=== PATIENT | female | born 1970 | race Caucasian/White ===

== ENCOUNTER 2021-07-05 07:55 | Outpatient (CLI) | payer OTHER, SELFPAY ==
--- NOTE | 2021-07-05 | ECHO_ITS ---
Patient Info Name: Tiffanie Gill Age: 50 years : 1970 Gender: Female Ht: 65 in Wt: 150 lbs BSA: 1.78 m2 HR: 78 bpm BP: 116 / 77 mmHg Heart Rhythm: Sinus Rhythm Technical Quality: Good Exam Date: 07/05/2021 10:35 AM Exam Location: [facility] Pulmonary Patient Status: Outpatient Admit Date: 07/05/2021 Staff Ordering Physician: Paris, Kellen MCNALLY Music Director: Angela Morris RDCS Attending Provider: SeraKellen Exam Type: CA echo doppler color flow Study Info Indications - COPD R06.09 - Other forms of dyspnea Complete two-dimensional, color flow and Doppler transthoracic echocardiogram is performed. Summary 1. Complete two-dimensional, color flow and Doppler transthoracic echocardiogram is performed. 2. Left ventricular chamber dimension is normal. 3. Left ventricular systolic function is normal, estimated at 60-65%. 4. There is no increased left ventricular wall thickness. 5. The left ventricular diastolic function is normal. 6. There is mild aortic valve regurgitation. 7. There is mild tricuspid valve regurgitation. 8. No pulmonary hypertension, estimated pulmonary arterial systolic pressure is 27 mmHg. Left Ventricle Left ventricular chamber dimension is normal. Left ventricular systolic function is normal, estimated at 60-65%. There is no increased left ventricular wall thickness. The left ventricular diastolic function is normal. Right Ventricle Right ventricular chamber dimension is normal. Right ventricular systolic function is normal. Left Atria Left atrial chamber dimension is normal. Right Atria Right atrial chamber dimension is normal. Aortic Valve The aortic valve is trileaflet. There is no aortic valve stenosis. There is mild aortic valve regurgitation. Pulmonic Valve The pulmonic valve is normal. There is trace pulmonic regurgitation. Mitral Valve The mitral valve has normal leaflets. There is trace mitral valve regurgitation. Tricuspid Valve The tricuspid valve leaflets are normal. There is mild tricuspid valve regurgitation. No pulmonary hypertension, estimated pulmonary arterial systolic pressure is 27 mmHg. Pericardium/Pleural The pericardium appears normal. There is no pericardial effusion. Inferior Vena Cava Normal inferior vena cava with >50% collapse upon inspiration consistent with normal right atrial pressure, 5 mmHg. Aorta The aortic root size at the sinus of Valsalva is normal. Left Ventricular Outflow Tract Name Value Normal LVOT 2D LVOT Diameter 2.0 cm LVOT Doppler LVOT Peak Gradient 4 mmHg LVOT Mean Gradient 2 mmHg LVOT VTI 23 cm LVOT VTI/AV VTI Ratio 0.9 LVOT Stroke Volume 70 ml LVOT CO 12.1 l/min LVOT CI 6.8 l/min/m2 Pulmonic Valve Name Value Normal
[2021-07-05 11:57] LABS: NT Pro B Type Natriuretic Pept 238 pg/mL (5-100)
--- NOTE | 2021-07-05 16:59 | WPDSIXMINUTE ---
Six Minute Walk Procedure Procedure Performed Pulmonary Stress Test (6 min walk) Six Minute Walk This is a 6 minute walk test. The test was performed and interpreted in accordance with the 2014 ERS/ATS task force guidelines. Findings: The patient's resting room air oxygen saturation measured by pulse oximetry was 96% and her heart rate was 65 bpm. Patient ambulated for 417 meters and oxygen saturation remained 94 to 96%. Heart rate at the end of the study was 90 bpm. The patient did not qualify for supplemental oxygen at rest or with ambulation. There are no prior studies for comparison.
--- NOTE | 2021-07-05 17:00 | WPDPFTINT ---
PFT Procedure Performed PFT Procedure Performed Spirometry with Pre/Post Bronchodilator Plethysmography (Lung Vol) Diffusing Cap (DLCO) Flow Vol Loop PFT Interpretation This is a pulmonary function test with pre and post-bronchodilator spirometry, plethysmography and diffusing capacity. The test was performed and results interpreted in accordance with the 2019 and 2005 ATS/ERS Task Force guidelines respectively using the Global Lung Function Initiative-2012 reference equations. Patient demonstrated good effort and cooperation. Reproducibility criteria were met. The quality of the pre bronchodilator spirometry maneuver was Grade A and post bronchodilator spirometry maneuver was Grade A. Findings: Spirometry: the contour the inspiratory and expiratory flow tracing are normal. The pre bronchodilator FVC is 3.77 L, 106% predicted. The pre bronchodilator FEV1 is 2.81 L, 99% predicted. The FEV1: FVC ratio 75%. The post bronchodilator FVC is 3.68 L, representing a 2% decrease. The post bronchodilator FEV1 is 2.77 L, representing 1% decrease. Plethysmography: The total lung capacity is 5.11 L, 98% predicted. Functional residual capacity is 3.34 L, 115% predicted. The residual volume is 1.34 L, 72% predicted. Diffusing capacity: The absolute diffusion capacity is 17.5, 76% predicted. The diffusing capacity corrected for alveolar volume is 3.92, 86% predicted. Impression: The spirometry is normal without evidence of an obstructive abnormality. There is no significant improvement after inhaling a single dose of albuterol. The lung volumes are normal. The diffusing capacity is normal. There are no prior studies for comparison
[2021-07-08 10:54] LABS: Alpha-1-Antitrypsin, QN 136 mg/dL (83-199); NIL 0.06 IU/mL; Quantiferon TB Plus, 1T NEGATIVE (NEGATIVE); TB1-NIL <0.00 IU/mL; TB2-NIL <0.00 IU/mL
[2021-07-08 12:19] LABS: Immunoglobulin G, Serum 1016 mg/dL (600-1640); Immunoglobulin G1 658 mg/dL (382-929); Immunoglobulin G2 210 mg/dL (241-700); Immunoglobulin G3 53 mg/dL (22-178); Immunoglobulin G4 20.3 mg/dL (4.0-86.0)
== END 2021-07-05 07:56 | disposition home or self-care (01) ==
PROVIDERS: PCP Internal Medicine Infectious Disease; Visit Provider Nurse Practitioner
DX: J44.9 Chronic obstructive pulmonary disease, unspecified (principal); R05 Cough; I35.1 Nonrheumatic aortic (valve) insufficiency; I36.1 Nonrheumatic tricuspid (valve) insufficiency
CPT/HCPCS: 36415; 82103; 82104; 82784; 82785; 82787; 83880; 86003; 86480; 93306; 94060; 94618; 94726; 94729

== ENCOUNTER 2021-11-22 12:02 | Outpatient (CLI) | payer OTHER, SELFPAY ==
--- NOTE | 2021-11-23 06:46 | P.METCHAL_ITS ---
Methacholine Procedure Perform Procedure Performed Methacholine Challenge Methacholine Challenge This is a methacholine challenge test. The test was performed and interpreted in accordance with the 2017 ERS technical standard, endorsed by the ATS, using the GLI 2012 reference equations. Testing was performed with increasing doses of nebulized methacholine following a quadrupling dosage protocol. The methacholine dose was delivered via the [employer] Smart[employer] RF[employer] Micromist nebulizer using a 1-minutes tidal breathing protocol. The best post-methacholine FEV1 values were used to determine the change from the post diluent FEV1. The delivered dose of methacholine was used to calculate the provocative dose causing a 20% fall in FEV1 (PD 20). Findings: Baseline FEV1 2.93 L, 103% predicted. Post diluent FEV1 2.83 L Post 1.81 mcg methacholine FEV1 2.45 L, decreased 14% Post 7.26 mcg methacholine FEV1 2.02 L, decreased 29% Post albuterol nebulization FEV1 2.88 L Impression: The PD20 is 3.26 mcg which is categorized as marked airway hyperresponsiveness. There are no prior methacholine challenge studies for comparison
== END 2021-11-22 12:03 | disposition home or self-care (01) ==
PROVIDERS: PCP Internal Medicine Infectious Disease; Visit Provider Nurse Practitioner
DX: J44.9 Chronic obstructive pulmonary disease, unspecified (principal)
CPT/HCPCS: 94070; J7674

== ENCOUNTER 2021-11-22 12:10 | Outpatient (CLI) | payer OTHER, SELFPAY ==
[2021-11-22 13:10] LABS: Basophils Percent Auto 0.4 % (0.2-1.2); Eosinophils Absolute Auto 0.1 K/mm3 (0-0.3); Eosinophils Percent Auto 1.5 % (0-4.4); Hematocrit 46.4 % (37.0-47.0); Hemoglobin 15.5 g/dL (12.0-15.0); Immature Granulocyte Absolute 0.03 K/mm3 (0.00-0.031); Immature Granulocyte Percent A 0.3 % (0-0.5); Lymphocytes Absolute Auto 2.44 K/mm3 (0.9-3.2); Lymphocytes Percent Auto 25.7 % (18.3-44.2); Mean Corpuscular HGB Conc 33.4 g/dl (32-36); Mean Corpuscular Hemoglobin 33.4 pg (26-34); Mean Platelet Volume 10.6 fl (7.4-10.4); Monocytes Absolute Auto 0.5 K/mm3 (0.1-0.6); Monocytes Percent Auto 5.3 % (2.6-8.5); Neutrophils Absolute Auto 6.4 K/mm3 (1.3-6.7); Neutrophils Percent Auto 66.8 % (45.5-73.1); Platelet Count Result 209 k/mm3 (150-375); Red Blood Count 4.64 M/mm3 (4.2-5.4); Red Cell Distribution Width 12.8 % (11.5-14.5); White Blood Count 9.5 K/mm3 (4.5-10.0)
[2021-11-22 13:21] LABS: Alanine Aminotransferase 21 U/L (4-35); Albumin Level 4.2 g/dL (3.5-5.1); Alkaline Phosphatase 87 U/L (38-126); Anion Gap 2 mmol/L (8-16); Aspartate Amino Transferase 26 U/L (14-36); Bilirubin,Total 0.4 mg/dL (0.2-1.3); Blood Urea Nitrogen 14 mg/dL (7-17); Calcium 9.3 mg/dL (8.4-10.2); Carbon Dioxide 31 mmol/L (22-30); Chloride 103 mmol/L (98-107); Estimated Glomerular Filt Rate > 60; Glucose 142 mg/dL (65-110); Potassium 3.6 mmol/L (3.4-5.0); Sodium 136 mmol/L (137-145)
[2021-11-24 22:03] LABS: Erythropoietin (EPO) 6.6 mIU/mL (2.6-18.5)
== END 2021-11-22 12:11 | disposition home or self-care (01) ==
LOC: ANHLAB 12:12
PROVIDERS: PCP Internal Medicine Infectious Disease; Visit Provider Internal Medicine Hematology & Oncology
DX: D75.1 Secondary polycythemia (principal)
CPT/HCPCS: 36415; 80053; 82668; 85025

== ENCOUNTER 2022-05-23 11:17 | Outpatient (CLI) | payer OTHER, SELFPAY ==
[2022-05-23 12:08] LABS: Hemoglobin 15.5 g/dL (12.0-15.0); Mean Platelet Volume 10.9 fl (7.4-10.4); Platelet Count Result 208 k/mm3 (150-375); Red Cell Distribution Width 13.3 % (11.5-14.5); White Blood Count 8.4 K/mm3 (4.5-10.0)
== END 2022-05-23 11:18 | disposition home or self-care (01) ==
PROVIDERS: PCP Internal Medicine Infectious Disease; Visit Provider Internal Medicine Hematology & Oncology
DX: D75.1 Secondary polycythemia (principal)
CPT/HCPCS: 36415; 85027

== ENCOUNTER 2022-11-29 09:45 | Outpatient (CLI) | payer OTHER, SELFPAY ==
[2022-11-29 09:54] LABS: Hematocrit 45.8 % (37.0-47.0); Hemoglobin 15.4 g/dL (12.0-15.0); Mean Corpuscular HGB Conc 33.6 g/dl (32-36); Mean Corpuscular Volume 98.1 fl (80-100); Mean Platelet Volume 10.3 fl (7.4-10.4); Platelet Count Result 201 k/mm3 (150-375); Red Blood Count 4.67 M/mm3 (4.2-5.4); Red Cell Distribution Width 12.9 % (11.5-14.5); White Blood Count 7.8 K/mm3 (4.5-10.0)
== END 2022-11-29 09:46 | disposition home or self-care (01) ==
LOC: ANHLAB 09:47
PROVIDERS: PCP Internal Medicine Infectious Disease; Visit Provider Internal Medicine Hematology & Oncology
DX: D75.1 Secondary polycythemia (principal)
CPT/HCPCS: 36415; 85027

== ENCOUNTER 2023-08-29 12:38 | Outpatient (CLI) | payer OTHER, SELFPAY ==
[2023-08-29 12:50] LABS: Hematocrit 44.2 % (37.0-47.0); Mean Corpuscular HGB Conc 33.9 g/dl (32-36); Mean Corpuscular Hemoglobin 33.2 pg (26-34); Mean Corpuscular Volume 97.8 fl (80-100); Mean Platelet Volume 9.7 fl (7.4-10.4); Platelet Count Result 179 k/mm3 (150-375); Red Blood Count 4.52 M/mm3 (4.2-5.4); Red Cell Distribution Width 12.8 % (11.5-14.5); White Blood Count 7.9 K/mm3 (4.5-10.0)
[2023-08-29 12:55] LABS: Blood Urea Nitrogen 14 mg/dL (8-26); Carbon Dioxide 30 mmol/L (22-30); Chloride 100 mmol/L (98-109); Estimated Glomerular Filt Rate > 60; Glucose 89 mg/dL (70-105); Ionized Calcium (POC) 1.19 mmol/L (1.11-1.31); Potassium 3.8 mmol/L (3.5-4.9); Sodium 142 mmol/L (138-146)
== END 2023-08-29 12:39 | disposition home or self-care (01) ==
LOC: ANHLAB 12:40
PROVIDERS: PCP Internal Medicine Infectious Disease; Visit Provider Internal Medicine Hematology & Oncology
DX: D75.1 Secondary polycythemia (principal)
CPT/HCPCS: 36415; 80047; 85027

== ENCOUNTER 2024-05-03 09:35 | Outpatient (CLI) | payer OTHER, SELFPAY ==
--- NOTE | ~2024-05-03 | MR_ITS ---
MRI of the brain Clinical History: Ataxia Technique: Axial and sagittal T1-weighted images were acquired. These were followed by axial T2-weigh tiff, diffusion weighted, gradient, and FLAIR images. Findings: No abnormal signal seen in the brain parenchyma. No acute infarct, intracranial hemorrhage, or mass lesion. Ventricles and subarachnoid spaces are unremarkable. Orbits are unremarkable. Paranasal sinuses and m astoid air cells are clear. Major intracranial flow voids are intact. Sagittal midline structures are intact. IMPRESSION: Normal exam. Reviewed, dictated and finalized at location M. IMPRESSION: Normal exam.
== END 2024-05-03 09:36 | disposition home or self-care (01) ==
LOC: ANHIMG 09:37
PROVIDERS: PCP Internal Medicine Infectious Disease; Visit Provider Student in an Organized Health Care Education/Training Program
DX: R26.0 Ataxic gait (principal); G25.2 Other specified forms of tremor
CPT/HCPCS: 70551

== ENCOUNTER 2024-05-28 11:09 | Outpatient (CLI) | payer OTHER, SELFPAY ==
[2024-05-28 11:34] LABS: Hematocrit 44.3 % (37.0-47.0); Hemoglobin 15.1 g/dL (12.0-15.0); Mean Corpuscular HGB Conc 34.1 g/dl (32-36); Mean Corpuscular Hemoglobin 33.1 pg (26-34); Mean Corpuscular Volume 97.1 fl (80-100); Mean Platelet Volume 9.9 fl (7.4-10.4); Platelet Count Result 192 k/mm3 (150-375); Red Blood Count 4.56 M/mm3 (4.2-5.4); Red Cell Distribution Width 13.2 % (11.5-14.5); White Blood Count 7.8 K/mm3 (4.5-10.0)
[2024-05-28 11:41] LABS: Blood Urea Nitrogen 14 mg/dL (8-26); Carbon Dioxide 30 mmol/L (22-30); Chloride 98 mmol/L (98-109); Estimated Glomerular Filt Rate > 60; Glucose 72 mg/dL (70-105); Ionized Calcium (POC) 1.23 mmol/L (1.11-1.31); Potassium 3.6 mmol/L (3.5-4.9); Sodium 140 mmol/L (138-146)
[2024-05-28 13:08] LABS: Free T4 Free Thyroxine 1.18 ng/mL (0.78-2.19)
[2024-05-28 13:23] LABS: Thyroid Stimulating Hormone 0.897 uIU/mL (0.465-4.680)
[2024-05-29 12:08] LABS: Triiodothyronine T3 Free 3.3 pg/mL (2.3-4.2)
[2024-05-29 18:12] LABS: Red Blood Cell Folate 462 ng/mL RBC (>280)
[2024-06-01 02:33] LABS: Methylmalonic Acid 162 nmol/L (55-335)
[2024-06-02 19:13] LABS: Vitamin D 1,25 (OH)2 Total 40 pg/mL (18-72); Vitamin D2 1,25 (OH)2 <8 pg/mL; Vitamin D3 1,25 (OH)2 40 pg/mL
== END 2024-05-28 11:10 | disposition home or self-care (01) ==
LOC: ANHLAB 11:11
PROVIDERS: Nurse Practitioner Family; Psychiatry & Neurology Neurology; PCP Internal Medicine Infectious Disease; Visit Provider Internal Medicine Hematology & Oncology
DX: D75.1 Secondary polycythemia (principal); G25.0 Essential tremor; G47.50 Parasomnia, unspecified
CPT/HCPCS: 36415; 80047; 82607; 82652; 82747; 83921; 84439; 84443; 84481; 85027

== ENCOUNTER 2024-06-05 09:31 | Outpatient (CLI) | payer OTHER, SELFPAY ==
--- NOTE | 2024-06-05 11:20 | NEURO_ITS ---
Impression: # Complains of left upper extremity pain. Non-diabetic. # Normal Nerve Conduction Study; No Carpal Tunnel Syndrome or ulnar neuropathy. # Normal needle/EMG exam. # Clinical correlation recommended. Nerve Conduction Studies Anti Sensory Summary Table Stim Site NR Peak (ms) P-T Amp (?V) Site1 Site2 Delta-P (ms) Dist (cm) Addison (m/s) Left Median Anti Sensory (2-3nd Digit) Wrist 2.8 33.3 Wrist 2-3nd Digit 2.8 14.0 50 Wrist 2.8 42.5 Wrist 2-3nd Digit 2.8 14.0 50 Left Radial Anti Sensory (Base 1st Digit) Wrist 1.9 34.1 Wrist Base 1st Digit 1.9 0.0 Left Ulnar Anti Sensory (5th Digit) Wrist 2.5 55.7 Wrist 5th Digit 2.5 14.0 56 Motor Summary Table Stim Site NR Onset (ms) O-P Amp (mV) Site1 Site2 Delta-0 (ms) Dist (cm) Addison (m/s) Left Median Motor (Abd Poll Brev) Wrist 3.4 5.5 Elbow Wrist 5.2 29.0 56 Elbow 8.6 3.9 Left Ulnar Motor (Abd Dig Minimi) Wrist 2.5 5.4 A Elbow Wrist 5.5 32.0 58 A Elbow 8.0 4.9 F Wave Studies NR F-Lat (ms) L-R F-Lat (ms) Left Median (Mrkrs) Run #2 (Abd Poll Brev) 23.51 Left Ulnar (Mrkrs) (Abd Dig Min) 23.61 EMG Side Muscle Nerve Root Ins Act Fibs Amp Dur Recrt Comment Left 1stDorInt Ulnar C8-T1 Nml Nml Nml Nml Nml Left Ext Indicis Radial (Post Int) C7-8 Nml Nml Nml Nml Nml Left Ext Digitorum Radial (Post Int) C7-8 Nml Nml Nml Nml Nml Left BrachioRad Radial C5-6 Nml Nml Nml Nml Nml Left PronatorTeres Median C6-7 Nml Nml Nml Nml Nml Left Abd Poll Brev Median C8-T1 Nml Nml Nml Nml Nml Left ABD Dig Min Ulnar C8-T1 Nml Nml Nml Nml Nml Left Biceps Musculocut C5-6 Nml Nml Nml Nml Nml Left Triceps Radial C6-7-8 Nml Nml Nml Nml Nml Left Deltoid Axillary C5-6 Nml Nml Nml Nml Nml MTDD
== END 2024-06-05 09:32 | disposition home or self-care (01) ==
LOC: ANHNEURO 09:31
PROVIDERS: PCP Internal Medicine Infectious Disease; Visit Provider Internal Medicine Infectious Disease
DX: G45.2 Multiple and bilateral precerebral artery syndromes (principal)
CPT/HCPCS: 95886; 95909

== ENCOUNTER 2025-05-28 11:13 | Outpatient (CLI) | payer OTHER, SELFPAY ==
--- OUTSIDE RECORDS SUMMARY | 2025-05-28 11:23 | XMS_ITS | Clinical Summary ---
Author Organization [facility] Address [address] [place] [address] Care Team Providers Care Building Equipment Inspector Name Role Phone None, Physician Primary Care Provider Unavailabl e Source Comments [facility],non-owned Affiliates and Associated Physician Practices is amultiple site organization consisting of ambulatory clinics and hospital sitesin [place], [place], [place] and [place]. This disclosure is being madepursuant to the Care Everywhere program and may not contain all information available regarding this patient. Last updated 18.[facility] Allergies No known active allergies Social History Tobacco Use Types Packs/Day Years Used Date Smoking Tobacco: Every Day Cigarettes 1 30 Smokeless Tobacco: Never PHQ-2 Answer Date Recorded Patient Health Questionnaire-2 Score 2 09/27/2023 Comments Unknown Sex and Gender Information Value Date Recorded Sex Assigned at Not on file Legal Sex Female 6:27 AM SCREEN PRINTER Gender Identity Not on file Sexual Orientation Not on file Last Filed Vital Signs Vital Sign Reading Time Taken Comments Blood Pressure - - Pulse - - Temperature - - Respiratory Rate - - Oxygen Saturation - - Inhaled Oxygen Concentration - - Weight - - Height 167.6 cm (5' 6) 09/27/2023 10:15 AM SCREEN PRINTER Body Mass Index - - Plan of Treatment Health Maintenance Due Date Last Done Comments COLOGUARD (AGES 45-75) - COLON CA SCREENING 1970 COLON MONITORING 1970 COLONOSCOPY - COLON CA SCREENING 1969 CT COLONOGRAPHY - COLON CA SCREENING 1970 Colorectal Cancer Screening 1970 FIT - COLON CA SCREENING 1969 FLEX SIG - COLON CA SCREENING 1970 MAMMOGRAM 1970 HIV SCREENING 1984 HEPATITIS C SCREENING 12/15/1987 DTAP/TDAP/TD VACCINES (1 - Tdap) 1988 HEPATITIS B VACCINE (1 of 3 - 19+ 3-dose series) 1988 PNEUMOCOCCAL VACCINE 50+ (1 of 2 - PCV) 1988 PAP SMEAR 1990 LUNG CANCER SCREENING 12/20/2019 ZOSTER VACCINE (1 of 2) 12/20/2019 COVID-19 VACCINE (3 - season) 2024 01/18/2021, 12/28/2020 DEPRESSION SCREENING 10/16/2024 09/27/2023 INFLUENZA VACCINE (#1) 2025 2, 06/30/2021, 06/11/2020, Additional history exists LIPID TESTING 11/21/2027 11/21/2022 HIB VACCINE Aged Out No longer eligi ble based on patient's age to complete this topic HPV VACCINE Aged Out No longer eligi ble based on patient's age to complete this topic MENINGOCOCCAL (Group B) VACCINE SHARED DECISION-MAKING Aged Out No longer eligible based on patient's age to complete this topic MENINGOCOCCAL GROUPS A/C/Y/W VACCINE Aged Out No longer eligible based on patient's age to complete this topic Insurance Care Teams Building Equipment Inspector Relationship Specialty Start Date End Date None, Physician [address] [place] [address] PCP - General 09/27/23
--- OUTSIDE RECORDS SUMMARY | 2025-05-28 11:23 | XMS_ITS | Clinical Summary ---
Author Organization [facility] [address] Address [address] [place] [address] Care Team Providers Care Analytical Data Miner Name Role Phone Lillian Garnett MD Primary Care Provider Allergies No known active allergies Medications propranoloL (INDERAL) 10 mg tablet Take 1 tablet (10 mg total) by mouth 3 (three) times a day 1 Active aspirin 81 mg enteric coated tablet Take 1 tablet (81 mg total) by mouth daily Active citalopram (CeleXA) 20 mg tablet Take 1 tablet (20 mg total) by mouth daily 4 Active primidone (MYSOLINE) 50 mg tablet Take 1 tablet (50 mg total) by mouth daily 4 Active tiotropium (Spiriva with HandiHaler) 18 mcg per inhalation capsule TAKE 1 PUFF (ONE CAPSULE TOTAL) INHALED BY MOUTH ONCE DAILY 30 capsule 11 5 Active buPROPion SR (WELLBUTRIN SR) 150 mg 12 hr tablet TAKE 1 TABLET (150 MG TOTAL) BY MOUTH TWO TIMES A DAY 60 tablet 11 5 Active nicotine (NICODERM CQ) 14 mgIndications:Cig arette nicotine dependence without complication Place 1 patch on the skin daily for 24 hours 30 patch 2 5 Active Symbicort 160-4.5 mcg/actuation inhalerIndication s:Asthma-COPD overlap syndrome (HCC) Inhale 2 puffs 2 (two) times a day Rinse mouth with water after use. Do not swallow. 1 each 11 5 Active montelukast (SINGULAIR) 10 mg tablet TAKE 1 TABLET (10 MG TOTAL) BY MOUTH NIGHTLY 30 tablet 11 5 Active albuterol HFA (PROVENTIL HFA,VENTOLIN HFA,PROAIR HFA) 90 mcg/actuation inhaler INHALE TWO PUFFS BY MOUTH EVERY SIX HOURS NEEDED FOR WHEEZING 6.7 g 11 5 Active Active Problems Problem Noted Date Diagnosed Date Asthma-COPD overlap syndrome 07/24/2024 Assessment & Plan (01/22/2025 11:00 AM CDT): Continue Symbicort 160-4.5 twice daily Continue Spiriva HandiHaler 18 mcg daily Albuterol 2 puffs every 4 hours as needed only, we have discussed indications for use Continue montelukast 10 mg daily in the evening A1AT normal I will check a CBC today to assess her eosinophil count We have discussed signs and symptoms that would require earlier evaluation or change to her plan of care Assessment & Plan (07/24/2024 11:05 AM CDT): Continue Symbicort 160-4.5 twice daily Continue Spiriva HandiHaler 18 mcg daily Albuterol as needed only, we have discussed indications for use A1AT normal Cigarette nicotine dependence without complicati on 07/24/2024 Assessment & Plan (01/22/2025 11:01 AM CDT): Continue Zyban 150 twice daily - Smoking cessation counseling and techniques reviewed at length - Avoid triggers and use distraction techniques - Participate in support groups - Information given regarding [place] Tobacco Quit line: 4-141-MJFC-YES for free services - 5 minutes spent discussing cessation I have sent for nicotine patches as a supplement As far as I can see she is overdue for annual low-dose cancer screening I have order testing today. If we find that she has had a CT scan of her chest completed in the interval I will request images and make further recommendations on follow-up at that time Assessment & Plan (07/24/2024 11:06 AM CDT): Previous prescription for Zyban - Smoking cessation counseling and techniques reviewed at length - Avoid triggers and use distraction techniques - Participate in support groups - Information given regarding [place] Tobacco Quit line: 1-282-IDPH-YES for free services - 5 minutes spent discussing cessation Laryngopharyngeal reflux (LPR) 01/23/2022 Assessment & Plan (01/22/2025 11:00 AM CDT): Avoid trigger foods Avoid eating 2-3 hours before bed sign avoid tight clothing Elevate head of bed while sleeping She is not currently on medication and symptoms are infrequent If diet modification does not sustain control I would consider adding famotidine We have discussed the correlation between uncontrolled GERD and chronic cough, dyspnea, and wheezing Assessment & Plan (07/24/2024 11:04 AM CDT): Avoid trigger foods Avoid eating 2-3 hours before bed sign avoid tight clothing Elevate head of bed while sleeping 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 Erythrocytosis 10/20/2021 Palpitations 08/30/2021 Tobacco abuse 07/12/2021 [place] (dyspnea on exertion) 07/12/2021 Chest tightness 07/12/2021 Immunizations Immunization Administration Dates Next Due Influenza, Quadrivalent, Split, Intramuscular Influenza, Quadrivalent, Spl it, Preservative Free, Intramuscular 06/11/2020,06/26/2018 Influenza, Trivalent, IM (MDV) 08/05/2013 Tdap 06/26/2018 Surgical History Surgery Date Site/Laterality Comments PARTIAL HYMENECTOMY CHOLECYSTECTOMY HYSTERECTOMY Medical History Medical History Date Comments Ataxia COPD (chronic obstructive pulmonary disease) H[place]BROOK (dyspnea on exertion) GERD (gastroesophageal reflux disease) Recurrent sinus infections Asthma Anxiety Arthritis Sleep apnea Asthma-COPD overlap syndrome (HCC) 07/24/2024 Cigarette nicotine dependence without complicati on 07/24/2024 Family History Medical History Relation Name Comments Clotting disorder Maternal Grandfather catracho Heart attack Maternal Grandfather catracho Arthritis Mother sharon Cancer Mother sharon Diabetes Mother sharon Hypertension Mother sharon Relation Name Status Comments Father unknown (Age 50's) Maternal Grandfather catracho Mother sharon (Age 53) Social History Tobacco Use Types Packs/Day Years Used Date Smoking Tobacco: Light Smoker Cigarettes 0.3 32.1 Started: 04/16/2023 Smokeless Tobacco: Never Comments:07/24/24 Pt states s he don't keep track of how much she smokes Comments Unknown Sex and Gender Information Value Date Recorded Sex Assigned at Not on file Legal Sex Female 5:29 PM CASE ASSISTANT Gender Identity Not on file Sexual Orientation Not on file Obstetrics History Last Filed Vital Signs Vital Sign Reading Time Taken Comments Blood Pressure 130/70 01/22/2025 9:59 AM CDT Pulse 68 01/22/2025 9:59 AM CDT Temperature 36.2 C (97.1 F) 01/22/2025 9:59 AM CDT Respiratory Rate 16 01/22/2025 9:59 AM CDT Oxygen Saturation 97% 01/22/2025 9:59 AM CDT Inhaled Oxygen Concentration - - Weight 75.7 kg (166 lb 14.4 oz) 01/22/2025 9:59 AM CDT Height 167.6 cm (5' 6) 01/22/2025 9:59 AM CDT Body Mass Index 26.94 01/22/2025 9:59 AM CDT Plan of Treatment Health Maintenance Due Date Last Done Comments Breast Cancer Screening-Mammogram 1970 Colon Cancer Screening-Colonoscopy 1969 Depression Screening 1969 Hepatitis C Screening 1969 Hepatitis B Screening 12/20/1987 Regular Well Visit/Exam 18-64 12/20/1987 Pneumococcal vaccine <65 (1 of 2 - PCV) 1988 Zoster Vaccine (1 of 2) 12/20/2019 Covid-19 Vaccine (3 - 2023-2 5 season) 2024 01/18/2021, 12/28/2020 Influenza Vaccine (#1) 2025 , 07/26/2022, 06/30/2021, Additional history exists DTaP/Tdap/Td Vaccine (2 - Td or Tdap) 06/26/2028 06/26/2018 Insurance [facility] Member Subscriber Plan / Payer ( fective 2020-Present) Name:Tiffanie Gill Relation to Subscriber:Self Name:Tiffanie Gill Payer ID:[id number] (NAIC) Group ID:Not on file Type:MEDICAID RISK OTHER Address: ATTN: CLAIMS DEPT [address] [facility] [place] [id number] Care Teams Analytical Data Miner Relationship Specialty Start Date End Date Lillian Garnett MD [address] [place] [address] PCP - General Internal Medicine 11/21/22
--- OUTSIDE RECORDS SUMMARY | 2025-05-28 11:23 | XMS_ITS | Clinical Summary ---
Author Organization [facility] Address [address] [place] [address] Care Team Providers Care Slat Twister Name Role Phone Lillian Garnett MD Primary Care Provider [phone] Allergies No known active allergies Medications propranoloL (INDERAL) 10 mg tablet Take 10 mg by mouth. 06/01/2021 Active albuterol sulfate 90 mcg/Actuation inhaler INHALE 1 PUFF BY MOUTH EVERY 4 HOURS 05/17/2021 Active Spiriva with HandiHaler 18 mcg capsule 05/25/2022 Active montelukast (SINGULAIR) 10 mg tablet 05/24/2022 Active Symbicort 160-4.5 mcg/actuation HFA Aerosol Inhaler INHALE 2 PUFFS BY MOUTH TWICE DAILY DIRECTED 02/25/2022 Active aspirin (ECOTRIN EC) 81 mg Tablet, Delayed Release (E.C.) Take 81 mg by mouth daily. Active citalopram (CeleXA) 20 mg tablet Take 20 mg by mouth daily at bedtime. Active primidone (MYSOLINE) 50 mg tablet Take 50 mg by mouth daily at bedtime. Active Active Problems Problem Noted Date Diagnosed Date Erythrocytosis 10/20/2021 Encounters Date Type Department Care Team Description 05/20/2025 External Device Data [facility] ABSTRACTION Provider, Abstract 04/30/2025 External Device Data [facility] ABSTRACTION Provider, Abstract 04/29/2025 External Device Data [facility] ABSTRACTION Provider, Abstract 04/01/2025 External Device Data [facility] ABSTRACTION Provider, Abstract 03/06/2025 External Device Data [facility] ABSTRACTION Provider, Abstract 03/05/2025 External Device Data [facility] ABSTRACTION Provider, Abstract 03/04/2025 External Device Data [facility] ABSTRACTION Provider, Abstract from Last 3 Months Family History Medical History Relation Name Comments Cancer Mother Relation Name Status Comments Brother Alive Daughter Alive Father Mother Sister Alive Son 1 Alive Son 2 Alive Social History Tobacco Use Types Packs/Day Years Used Date Smoking Tobacco: Light Smoker Cigarettes 0.3 25 Smokeless Tobacco: Never Tobacco Cessation:Ready to Q uit: Not Asked; Counseling Given: Not Answered Alcohol Use Standard Drinks/Week Comments Never 0 (1 standard drink = 0.6 oz pur e alcohol) Comments Unknown Sex and Gender Information Value Date Recorded Sex Assigned at Not on file Legal Sex Female 9:41 AM GRANT MANAGER Gender Identity Not on file Sexual Orientation Not on file Last Filed Vital Signs Vital Sign Reading Time Taken Comments Blood Pressure 120/80 05/28/2024 11:40 AM CDT Pulse 60 05/28/2024 11:40 AM CDT Temperature 36.7 C (98 F) 05/28/2024 11:40 AM CDT Respiratory Rate 18 05/28/2024 11:40 AM CDT Oxygen Saturation 97% 05/28/2024 11:40 AM CDT Inhaled Oxygen Concentration - - Weight 66.7 kg (147 lb) 05/28/2024 11:40 AM CDT Height 167.6 cm (5' 6) 05/25/2022 9:56 AM CDT Body Mass Index 23.73 05/25/2022 9:56 AM CDT Plan of Treatment Upcoming Encounters Date Type Department Care Team (Late st Contact Info) Description 05/28/2025 11:30 AM CDT Office Visit [facility] Oncology and Hematology - Dimitrios [address] [facility] [address] [place] [address] Jerrod Hernandez MD [address] [place] [address] Health Maintenance Due Date Last Done Comments HEPATITIS B VACCINES (1 of 3 - 19+ 3-dose series) 1988 Preventative Visit-Managed Medicaid 1988 HPV/Cotest (21-29) 1990 CERVICAL CANCER SCREENING 12/20/1999 HPV/Cotest (30-65) 12/20/1999 PAP SMEAR 12/20/1999 BREAST CANCER SCREENING 2009 COLORECTAL SCREENING 2014 Colorectal Cancer Screening 2014 FIT-DNA Q 3 years 2014 FIT/FOBT Q 1 year 2014 Flex Sig/CT Colonography Q 5 years 2014 ZOSTER VACCINE (1 of 2) 12/20/2019 INFLUENZA VACCINE (#1) 2025 0, 06/07/2019, 06/26/2018, Additional history exists DTAP/TDAP/TD VACCINES (2 - T d or Tdap) 06/26/2028 06/26/[address] [place] [address] [place] [address] MEDICAID Care Teams Slat Twister Relationship Specialty Start Date End Date Lillian Garnett MD [address] [place] [address] PCP - General Internal Medicine 10/20/21
--- OUTSIDE RECORDS SUMMARY | 2025-05-28 11:23 | XMS_ITS | Continuity of Care Document ---
Author Organization Formerly [facility] Address [address] [place] [address] Phone Care Team Providers Care Academic Success Coordinator Name Role Phone Maurice OD, Kofi Unavailable Unavailable Advance Directives Directive Yes / No Effective Date File Name No Information Encounters Encounter Description Practice Location Reason(s) For Visit Diagnoses Date Provider Providers Copied on Encounter [facility], [address], [place], [place], [id number], [place] tel:[phone] [facility] [place] No Information [id number] 1 Maurice OD Kofi. [address] [place] , [address], [place], [address], [place]. tel:[phone] Family History Family Member Type Diagnosis Age At Onset No Information Payers Payer name Insurance type Covered constitution party ID Authoriza tion(s) Medicaid [facility] [id number] Social History Type Description Quantity Date Captured Comments Sex Female Smoking Status No Information Chief Complaint And Reason For Visit No Information Reason For Referral Reason For Referral No Information History Of Present Illness Encounter Date Complaint History Of Prese nt Illness No Information Functional Status Date Functional Assessmen t No Information Instructions Date Instruction Additional Infor mation No Information Assessments Type Assessment Date No Information Patient Care Teams Name Effective Dates (start - stop) Status Members No Information
[2025-05-28 11:36] LABS: Hematocrit 44.6 % (37.0-47.0); Hemoglobin 14.9 g/dL (12.0-15.0); Mean Corpuscular HGB Conc 33.4 g/dl (32-36); Mean Corpuscular Hemoglobin 32.8 pg (26-34); Mean Corpuscular Volume 98.2 fl (80-100); Platelet Count Result 197 k/mm3 (150-375); Red Blood Count 4.54 M/mm3 (4.2-5.4); White Blood Count 7.5 K/mm3 (4.5-10.0)
== END 2025-05-28 11:14 | disposition home or self-care (01) ==
LOC: ANHLAB 11:14
PROVIDERS: PCP Internal Medicine Infectious Disease; Visit Provider Internal Medicine Hematology & Oncology
DX: D75.1 Secondary polycythemia (principal)
CPT/HCPCS: 36415; 85027